=== PATIENT | male | born 2000 | race Two or more races ===

== ENCOUNTER 2019-10-21 21:45 | Emergency (ER) | payer OTHER ==
[2019-10-21 21:54] VITALS: BP 128/75
[2019-10-21] MEDS ORDERED: CEFTRIAXONE INJ 250 MG VIAL IM ONE (22:14)
[2019-10-21] MEDS ORDERED: LIDOCAINE 1% INJ (10 MG/ML) 10 ML MDV INJ ONE (22:14)
[2019-10-21] MEDS ORDERED: AZITHROMYCIN 250 MG TABLET PO ONE (22:14)
--- NOTE | 2019-10-21 22:15 | ER Document Report ---
HPI - HPI Patient complains to provider of: Treatment for gonorrhea Time Seen by Provider: 10/21/19 22:11 Onset: Other - 3 days Onset/Duration: Persistent Quality of pain: Burning Pain Level: 1 Context: Patient reports exposure to gonorrhea. Patient states he had some dysuria and penile discharge. Patient declines needing testing stating that he only wants to be treated at this time. Associated Symptoms: denies: Fever, Vomiting Exacerbated by: Denies Relieved by: Denies Similar symptoms previously: No Recently seen / treated by doctor: No - ROS ROS below otherwise negative: Yes Systems Reviewed and Negative: Yes All other systems reviewed and negative - CONSTITUTIONAL Constitutional: DENIES: Fever, Chills - GASTROINTESTINAL Gastrointestinal: DENIES: Nausea - URINARY Urinary: REPORTS: Dysuria - MUSCULOSKELETAL Musculoskeletal: DENIES: Back Pain - DERM Skin Color: Normal Skin Problems: None Past Medical History - General Information source: Patient - Social History Smoking Status: Never Smoker Frequency of alcohol use: None Drug Abuse: None Family History: Reviewed & Not Pertinent - Medical History Medical History: Negative Past Surgical History: Reports: Hx Orthopedic Surgery Vertical Provider Document - CONSTITUTIONAL Agree With Documented VS: Yes Exam Limitations: No Limitations General Appearance: WD/WN, No Apparent Distress - HEENT HEENT: Atraumatic, Normocephalic - NECK Neck: Normal Inspection, Supple. negative: Lymphadenopathy-Left, Lymphadenopathy-Right - RESPIRATORY Respiratory: Breath Sounds Normal, No Respiratory Distress - CARDIOVASCULAR Cardiovascular: Regular Rate, Regular Rhythm - GI/ABDOMEN Gastrointestinal: Abdomen Soft - REPRODUCTIVE Notes: Patient deferred - BACK Back: negative: CVA Tenderness-Right, CVA Tenderness-Left - MUSCULOSKELETAL/EXTREMETIES Musculoskeletal/Extremeties: MAEW - NEURO Level of Consciousness: Awake, Alert, Appropriate Motor/Sensory: No Motor Deficit - DERM Integumentary: Warm, Dry Course - Re-evaluation Re-evalutation: 10/21/19 22:20 Patient declines any testing at this time stating that he only wants to be treated as his girlfriend was recently tested and treated. Patient advised that any exposure to an STI increase is a potential risk of exposure to other STIs including HIV. Patient encouraged to follow-up with the health department if you would like to pursue any additional testing. - Vital Signs Vital signs: Temp Pulse Resp BP Pulse Ox 98.9 F 77 128/75 H 99 10/21/19 21:50 10/21/19 21:50 10/21/19 21:50 10/21/19 21:50 Discharge - Discharge Clinical Impression: Gonorrhea contact Condition: Stable Disposition: HOME, SELF-CARE Instructions: Azithromycin ([facility]), Gonorrhea ([facility]), Rocephin ([facility]) Additional Instructions: Return immediately for any new or worsening symptoms Followup with your primary care provider, call tomorrow to make a followup appointment Follow-up with the health department if you would like any additional treatment or screening for other sexually transmitted infections[facility] - Follow up as needed
== END 2019-10-21 23:05 | disposition home or self-care (01) ==
LOC: ER 21:45
DX: Z20.2 Contact with and (suspected) exposure to infections with a predominantly sexual mode of transmission (principal); R30.0 Dysuria
CPT/HCPCS: 99283; 96372; J0696